=== PATIENT | male | born 1950 | race Caucasian/White ===

== ENCOUNTER → 2016-10-07 | Outpatient (CLI) | payer OTHER ==
[~2016-10-07] VITALS: Ht 170.2 cm; Wt 68.0 kg
[~2016-10-07] MED LIST: ADVAIR HFA120 INHALA IH; ATARAX10 MG PO; ATIVAN0.5 MG GT; BACLOFEN20 MG GT; EVOXAC30 MG GT; FLONASE16 G1 BOTH NARES; MORPHINE CON20 MG/M1 GT; NEXIUM40 MG GT; PROAIR RESPICL90 MCG IH; SPIRIVA RESPIMAT4 GM IH; TWOCAL HN GT; TYLENOL EXTRA500 MG PO; ZOFRAN ODT4 MG GT; ZOFRAN ODT4 MG PO; ZOLOFT100 MG GT
== END | disposition home or self-care (01) ==
LOC: AMB 13:48
DX: K94.23 Gastrostomy malfunction (principal); K44.9 Diaphragmatic hernia without obstruction or gangrene; K22.2 Esophageal obstruction; J44.9 Chronic obstructive pulmonary disease, unspecified; Z99.81 Dependence on supplemental oxygen; G14 Postpolio syndrome; G47.30 Sleep apnea, unspecified; I25.2 Old myocardial infarction; Z85.819 Personal history of malignant neoplasm of unspecified site of lip, oral cavity, and pharynx; Z92.3 Personal history of irradiation; F17.210 Nicotine dependence, cigarettes, uncomplicated; Z79.52 Long term (current) use of systemic steroids; Z79.891 Long term (current) use of opiate analgesic; Z88.8 Allergy status to other drugs, medicaments and biological substances
CPT/HCPCS: B4087

== ENCOUNTER → 2017-12-11 | Outpatient (CLI) | payer OTHER ==
[~2017-12-11] MED LIST changes: +VITAL AF 1.2 C237 ML PO
== END | disposition home or self-care (01) ==
LOC: AMB 14:00
DX: Z43.1 Encounter for attention to gastrostomy (principal); B18.2 Chronic viral hepatitis C; F17.210 Nicotine dependence, cigarettes, uncomplicated; J44.9 Chronic obstructive pulmonary disease, unspecified; K21.9 Gastro-esophageal reflux disease without esophagitis; G47.30 Sleep apnea, unspecified
CPT/HCPCS: 87070; 87075; 87077; 87106; 87186; 87205; 99213

== ENCOUNTER → 2018-01-25 | Outpatient (CLI) | payer OTHER ==
[~2018-01-25] MED LIST changes: +CARAFATE1 GM GT; +MECLIZINE HCL25 MG GT; -MORPHINE CON20 MG/M1 GT; +MORPHINE CON20 MG/M1 PO; +TRAZODONE HCL50 MG GT; +TYLENOL EXTRA500 MG GT; -TYLENOL EXTRA500 MG PO; -ZOFRAN ODT4 MG PO; +ZOFRAN ODT4 MG SL
== END | disposition home or self-care (01) ==
LOC: RAD 14:52
PROC: 0D2DXUZ Change Feeding Device in Lower Intestinal Tract, External Approach (ICD-10-PCS; principal; 2018-01-25)
DX: K94.23 Gastrostomy malfunction (principal)
CPT/HCPCS: C1769